=== PATIENT | male | born 1980 | race Caucasian/White ===

== ENCOUNTER 2020-11-10 10:05 | Emergency (ER) | payer BC ==
[2020-11-10] MEDS ORDERED: predniSONE 20 MG TAB ONE (13:37)
[2020-11-10] MEDS ORDERED: HYDROCODONE/APAP 10/325 TAB ONE (13:38)
--- NOTE | 2020-11-10 13:59 | RAD REPORT ---
EXAM DESCRIPTION: CT - Thoracic Spine W/o Cont - 11/10/2020 1:43 pm CLINICAL HISTORY: PAIN COMPARISON: No comparisons TECHNIQUE: Axial CT imaging through the thoracic spine was performed with coronal and sagittal re-fo rmatted images. All CT scans are performed using dose optimization technique as appropriate and may include automated exposure control or mA/KV adjustment according to patient size. FINDINGS: Vertebral body heights and disc spaces are maintained. A compression fracture is not prese nt. No significant disc space narrowing. Thoracic spine alignment is within normal limits. No paraspinal masses or hematoma. Intervertebral disc detail is inherently limited on CT without gross findings of canal compromise. IMPRESSION: No fracture or significant focal degenerative changes involving the thoracic spine. MRI or sensitive to detect etiologies for radiculopathy if clinically indicated.
[2020-11-10 14:16] LABS: BUN Blood Urea Nitrogen 9 mg/dL (7-18); Bicarbonate 30 mmol/L (21-32); Glucose Level 69 mg/dL (74-106); NT PRO-BNP 240 pg/mL (<125); Potassium 4.3 mmol/L (3.5-5.1); Sodium Level 141 mmol/L (136-145); Thyroid Stimulating Hormone 0.397 uIU/mL (0.360-3.740)
--- NOTE | 2020-11-10 14:36 | ER ---
Nurse's Notes [facility] Name: Gray Hampton Age: 40 yrs Sex: Male : 1980 Arrival Date: 11/10/2020 Time: 10:09 Bed Treatment Private MD: Diagnosis: Radiculopathy, cervicothoracic region Presentation: 11/10 10:33 Chief complaint: Patient states: Pain starting middle of back then goes down both kg shoulders in quintin hands. Pt also reports swelling x 3 days. Coronavirus screen: Client denies travel out of the [place] in the last 14 days. At this time, unable to obtain information related to travel outside the [place] At this time, the client does not indicate any symptoms associated with coronavirus-19. Ebola Screen: Patient negative for fever greater than or equal to 101.5 degrees Fahrenheit, and additional compatible Ebola Virus Disease symptoms Patient denies exposure to infectious person. Patient denies travel to an Ebola-affected area in the 21 days before illness onset. Initial Sepsis Screen: Does the patient meet any 2 criteria? No. Patient's initial sepsis screen is negative. Does the patient have a suspected source of infection? No. Patient's initial sepsis screen is negative. Risk Assessment: Do you want to hurt yourself or someone else? Patient reports no desire to harm self or others. Onset of symptoms was November 06, 2020. 10:33 Method Of Arrival: Ambulatory kg 10:33 Acuity: JAZMÍN 4 kg 14:17 Acuity: JAZMÍN 3 ss Triage Assessment: 10:36 General: Appears in no apparent distress. Behavior is calm, cooperative, appropriate kg for age, quiet. Pain: Complains of pain in Inbetween shoulder blades Pain radiates to Quintin shoulders, Quintin arms, Quintin hands Pain Quality of pain is described as aching, stabbing, throbbing, Thightness Pain began 2-3 days ago. Musculoskeletal: Reports numbness in hands, fingers pain in Back, shoulders, arms, elbow, hands. Historical: - Allergies: 10:36 No Known Allergies; kg - Home Meds: 10:36 None [Active]; kg - PMHx: 10:36 None; kg - PSHx: 10:36 None; kg - Immunization history:: Adult Immunizations not up to date, Client reports having NOT received the Covid vaccine. - Social history:: Smoking status: Patient/guardian denies using tobacco, Stopped _ months ago 1 Patient uses alcohol, occasionally. Screenin:39 Abuse screen: Denies threats or abuse. Denies injuries from another. Nutritional kg screening: No deficits noted. Tuberculosis screening: No symptoms or risk factors identified. Fall Risk None identified. Assessment: 13:00 General: Appears in no apparent distress. comfortable, Behavior is calm, cooperative, ld1 appropriate for age. Pain: Complains of pain in right hand and left hand Pain does not radiate. Pain currently is 7 out of 10 on a pain scale. Quality of pain is described as throbbing, Pain began 2-3 days ago. Is continuous. Neuro: Level of Consciousness is. Neuro: Level of Consciousness is awake, alert, obeys commands, Oriented to person, place, time, situation. Cardiovascular: Capillary refill < 3 seconds Patient's skin is warm and dry. Rhythm is regular. Respiratory: Airway is patent Respiratory effort is even, unlabored, Respiratory pattern is regular, symmetrical. GI: Abdomen is flat, non-distended. : No signs and/or symptoms were reported regarding the genitourinary system. EENT: No signs and/or symptoms were reported regarding the EENT system. Derm: No signs and/or symptoms reported regarding the dermatologic system. Musculoskeletal: No signs and/or symptoms reported regarding the musculoskeletal system. 13:19 Reassessment:. ld1 13:32 Reassessment: Patient appears in no apparent distress at this time. Patient and/or ld1 family updated on plan of care and expected duration. Pain level reassessed. Patient is alert, oriented x 3, equal unlabored respirations, skin warm/dry/pink. 15:03 Reassessment: Patient appears in no apparent distress at this time. No changes from ld1 previously documented assessment. Patient and/or family updated on plan of care and expected duration. Pain level reassessed. Patient is alert, oriented x 3, equal unlabored respirations, skin warm/dry/pink. Vital Signs: 10:33 Pulse 83; Resp 20; Pulse Ox 100% ; Weight 102.06 kg; Height 6 ft. 2 in. (187.96 cm); kg Pain 8/10; 10:41 BP 132 / 90; Pulse 80; Resp 20; Pulse Ox 100% on R/A; kg 13:00 BP 133 / 83; Pulse 84; Resp 18; Pulse Ox 100% ; ld1 13:32 BP 128 / 83; Pulse 80; Resp 18; Pulse Ox 100% on R/A; ld1 15:03 BP 136 / 82; Pulse 87; Resp 18; Pulse Ox 100% ; ld1 10:33 Body Mass Index 28.89 (102.06 kg, 187.96 cm) kg ED Course: 10:09 Patient arrived in ED. as 10:36 Triage completed. kg 10:36 Arm band placed on right wrist. kg 10:39 Patient has correct armband on for positive identification. kg 12:40 Taty Muñoz, RN is Primary Nurse. ld1 12:48 Lion Garcia PA is PHCP. cp 13:00 No provider procedures requiring assistance completed. ld1 13:09 Stefani Conteh FNP-C is PHCP. kb 13:09 Abhishek Tripp MD is Attending Physician. kb 13:32 CPK Sent. ld1 13:44 CT Thoracic Spine Wo Cont In Process Unspecified. EDMS 15:03 IV discontinued, intact, bleeding controlled, No redness/swelling at site. ld1 Administered Medications: 13:18 Drug: D[place] (HYDROcodone-acetaminophen) 10 mg-325 mg 1 tabs Route: PO; ld1 15:05 Follow up: Response: No adverse reaction ld1 13:18 Drug: predniSONE 40 mg Route: PO; ld1 15:05 Follow up: Response: No adverse reaction ld1 Outcome: 14:36 Discharge ordered by . kb 15:03 Discharged to home ambulatory. ld1 15:03 Condition: stable 15:03 Discharge instructions given to patient, Instructed on discharge instructions, follow up and referral plans. medication usage, Demonstrated understanding of instructions, follow-up care, medications, Prescriptions given X 3. 15:03 Patient left the ED. ld1 Signatures: Dispatcher [employer] EDAL Stefani Conteh FNP-C FNP-Ckb Martinez, Amelia as Smirch, Shelby, RN RN Lion Garcia PA PA cp Taty Muñoz, RN RN ld1 Colleen Eubanks RN RN kg
--- NOTE | 2020-11-10 14:36 | EDPHYS ---
Physician Documentation [facility] Name: Gray Hampton Age: 40 yrs Sex: Male : 1980 Arrival Date: 11/10/2020 Time: 10:09 Bed Treatment Private MD: ED Physician Abhishek Tripp HPI: 11/10 13:31 This 40 yrs old Male presents to ER via Ambulatory with complaints of Hand kb Swelling, Hand Pain. 13:31 The patient presents with pain that is acute, with no known mechanism of injury. The kb symptoms are located in the thoracic area. Onset: The symptoms/episode began/occurred 3 day(s) ago. The pain radiates to the right arm and left arm. Associated signs and symptoms: Pertinent positives: numbness, tingling, Pertinent negatives: abdominal pain, chest pain, constipation, dysuria, fever, headache, hematuria, incontinence, nausea, urinary retention, vomiting, weakness. The problem was sustained without known cause. Modifying factors: The patient symptoms are alleviated by nothing, the patient symptoms are aggravated by any movement. Severity of symptoms: At their worst the symptoms were moderate, in the emergency department the symptoms are unchanged. The patient has not experienced similar symptoms in the past. The patient has not recently seen a physician. Patient reports pain between shoulder blades that started 3 days ago. Pain radiates down bilateral arms with numbness and tingling to bilateral hands. Reports intermittent swelling and decreased range of motion of bilateral hands. History of bilateral carpal tunnel sees an orthopedist for. States he is supposed to have a surgery to correct that but has not scheduled it yet. Also reports he got overheated at work the day before symptoms started.. Historical: - Allergies: 10:36 No Known Allergies; kg - Home Meds: 10:36 None [Active]; kg - PMHx: 10:36 None; kg - PSHx: 10:36 None; kg - Immunization history:: Adult Immunizations not up to date, Client reports having NOT received the Covid vaccine. - Social history:: Smoking status: Patient/guardian denies using tobacco, Stopped _ months ago 1 Patient uses alcohol, occasionally. ROS: 13:28 Constitutional: Negative for fever, chills, and weight loss. kb 13:28 Back: Positive for pain at rest, pain with movement, of the left trapezius, right trapezius, left scapular area, right scapular area and thoracic area. 13:28 MS/extremity: Positive for decreased range of motion, pain, swelling, tingling, of the right hand and left hand. 13:28 All other systems are negative. Exam: 13:28 Constitutional: This is a well developed, well nourished patient who is awake, alert, kb and in no acute distress. Head/Face: Normocephalic, atraumatic. ENT: Moist Mucous membranes Respiratory: Respirations even and unlabored. No increased work of breathing, no retractions or nasal flaring. Skin: Warm, dry with normal turgor. Normal color. Neuro: Awake and alert, GCS 15, oriented to person, place, time, and situation. Moves all extremities. Normal gait. Psych: Awake, alert, with orientation to person, place and time. Behavior, mood, and affect are within normal limits. 13:28 Back: pain, that is moderate, of the thoracic area, ROM is normal. 13:28 Musculoskeletal/extremity: Extremities: grossly normal except: noted in the right hand and left hand: decreased ROM, pain, ROM: limited active range of motion, in the right hand and left hand, Circulation is intact in all extremities. Sensation intact. Vital Signs: 10:33 Pulse 83; Resp 20; Pulse Ox 100% ; Weight 102.06 kg; Height 6 ft. 2 in. (187.96 cm); kg Pain 8/10; 10:41 BP 132 / 90; Pulse 80; Resp 20; Pulse Ox 100% on R/A; kg 13:00 BP 133 / 83; Pulse 84; Resp 18; Pulse Ox 100% ; ld1 13:32 BP 128 / 83; Pulse 80; Resp 18; Pulse Ox 100% on R/A; ld1 15:03 BP 136 / 82; Pulse 87; Resp 18; Pulse Ox 100% ; ld1 10:33 Body Mass Index 28.89 (102.06 kg, 187.96 cm) kg MDM: 13:09 Patient medically screened. kb 13:28 Data reviewed: vital signs, nurses notes. Data interpreted: Pulse oximetry: on room air kb is 100 %. Interpretation: normal. 14:35 Counseling: I had a detailed discussion with the patient and/or guardian regarding: the kb historical points, exam findings, and any diagnostic results supporting the discharge/admit diagnosis, lab results, radiology results, the need for outpatient follow up, a family practitioner, to return to the emergency department if symptoms worsen or persist or if there are any questions or concerns that arise at home. 11/10 13:22 Order name: Basic Metabolic Panel; Complete Time: 14:28 kb 11/10 13:22 Order name: BNP; Complete Time: 14:28 kb 11/10 13:13 Order name: CT Thoracic Spine Wo Cont; Complete Time: 14:01 kb 11/10 13:22 Order name: TSH; Complete Time: 14:28 kb 11/10 13:25 Order name: CPK kb 11/10 13:25 Order name: Creatine Phosphokinase; Complete Time: 14:31 EDMS 11/10 13:22 Order name: IV Start; Complete Time: 13:32 kb Administered Medications: 13:18 Drug: Ol[place]z (HYDROcodone-acetaminophen) 10 mg-325 mg 1 tabs Route: PO; ld1 15:05 Follow up: Response: No adverse reaction ld1 13:18 Drug: predniSONE 40 mg Route: PO; ld1 15:05 Follow up: Response: No adverse reaction ld1 Disposition: 16:41 Co-signature as Attending Physician, Abhishek Tripp MD I agree with the assessment and rn plan of care. Attestation: The patient's history, exam findings, diagnostics, and a summary of any interventions or procedures was reviewed in detail with Stefani SHOEMAKER. Disposition Summary: 11/10/20 14:36 Discharge Ordered Location: Home kb Condition: Stable kb Diagnosis - Radiculopathy, cervicothoracic region kb Followup: kb - With: Emergency Department - When: As needed - Reason: Worsening of condition Followup: kb - With: Private Physician - When: 2 - 3 days - Reason: Recheck today's complaints, Continuance of care, Re-evaluation by your physician Discharge Instructions: - Discharge Summary Sheet kb - Pinched Nerve kb - Cervical Radiculopathy, [id number] kb Forms: - Medication Reconciliation Form kb - Thank You Letter kb - Antibiotic Education kb - Prescription Opioid Use kb Prescriptions: - Prednisone 20 mg Oral Tablet - take 1 tablet by ORAL route once daily for 5 days; 5 tablet; Refills: 0, kb Product Selection Permitted - Cyclobenzaprine 10 mg Oral Tablet - take 1 tablet by ORAL route every 8 hours As needed; 21 tablet; Refills: 0, kb Product Selection Permitted - Diclofenac Sodium 75 mg Oral tablet,delayed release (DR/EC) - take 1 tablet by ORAL route 2 times per day As needed; 30 tablet; Refills: 0, kb Product Selection Permitted Signatures: Dispatcher [employer] Stefani Arvizu FNP-C FNP-Ckb Nieto, Roman, MD MD rn Dibbern, Lauren, RN RN ld1 Colleen Eubanks RN RN kg
== END 2020-11-10 15:03 | disposition home or self-care (01) ==
LOC: ER 10:05
DX: M54.13 Radiculopathy, cervicothoracic region (principal)
CPT/HCPCS: 36415; 72128; 80048; 82550; 83880; 84443; 99284; J7512